=== PATIENT | female | born 1980 | race Caucasian/White ===

== ENCOUNTER → 2019-04-13 | Outpatient (CLI) | payer OTHER ==
--- NOTE | 2019-04-13 10:12 | RAD ---
DATE: 04/13/2019. EXAM: DIGITAL DIAGNOSTIC BILATERAL HISTORY: Bilateral breast pain radiating into both axilla. COMPARISON: None This study was interpreted with the benefit of Computerized Aided Detection (CAD). FINDINGS: Breast Density: HETERO The breast parenchyma Is heterogeneously dense, which could reduce sensitivity of mammography. Breast parenchyma level C. Bilateral scattered focal asymmetries are seen. The skin and nipple are within normal limits. No suspicious calcifications. IMPRESSION: Dense breast tissue. Right breast lesion seen on ultrasound. Please see ultrasound report on the same day. BI-RADS CATEGORY: 4 SUSPICIOUS ABNORMALITY-BIOPSY SHOULD BE CONSIDERED RECOMMENDED FOLLOW-UP: BIO BIOPSY RECOMMENDED PQRS compliance statement: Patient information was entered into a reminder system with a target due date for the next mammogram. Mammography is a sensitive method for finding small breast cancers, but it does not detect them all and is not a substitute for careful clinical examination. A negative mammogram does not negate a clinically suspicious finding and should not result in delay in biopsying a clinically suspicious abnormality. "Our facility is accredited by the [employer] Mammography Program."
--- NOTE | 2019-04-13 10:16 | RAD ---
Indication: Bilateral breast pain. TECHNIQUE: Bilateral whole breast ultrasound COMPARISON: Same day diagnostic mammogram. FINDINGS: Right breast: Oval-shaped hypoechoic mass is seen at 1:00 position approximately 4 cm from the nipple which is wider than taller without vascularity measuring 0.8 x 0.9 x 0.2 cm. No posterior acoustic enhancement or shadowing. Most likely minimally complicated cyst. At 5:30 position approximately 4 cm from the nipple just below the skin there is an oval-shaped hypoechoic isoechoic soft tissue mass measuring 0.8 x 0.8 x 0.6 cm with trace internal vascularity. Right axillary lymph node is seen with normal morphology. Left breast: Oval-shaped hypoechoic mass measuring 0.5 x 0.5 x 0.2 cm without vascularity which is wider than taller likely cluster of cysts. Small morphologically normal-appearing left axillary lymph node IMPRESSION: 1. Bilateral breast indeterminate lesions likely minimally complicated cysts. However there is a solid lesion in the right breast at 5:30 position as described above. BI-RADS 4: Suspicious finding. Biopsy recommended. For other 2 lesions follow-up ultrasound in 6 months recommended. Findings discussed with patient in person. Attempts were made to reach referring physician without success. Electronically signed by: Reggie Bennett DO (04/13/2019 10:13 AM) [facility]
== END | disposition home or self-care (01) ==
LOC: MAMMO 08:20
PROVIDERS: ATTEND Physician Assistant
DX: N63.12 Unspecified lump in the right breast, upper inner quadrant (principal); N63.14 Unspecified lump in the right breast, lower inner quadrant; N63.20 Unspecified lump in the left breast, unspecified quadrant; N64.89 Other specified disorders of breast; E55.9 Vitamin D deficiency, unspecified; Z79.2 Long term (current) use of antibiotics; Z79.899 Other long term (current) drug therapy
CPT/HCPCS: 76641; 77066

== ENCOUNTER → 2019-04-27 | Outpatient (CLI) | payer OTHER ==
--- NOTE | 2019-04-27 09:11 | RAD ---
DATE: April 27, 2019 EXAM: DIGITAL DIAGNOSTIC RT HISTORY: Postbiopsy clip placement. FINDINGS: 2-D digital MLO and CC mammographic views of the right breast were performed. Biopsy clip is seen at the 5:30 position of the right breast approximately 4 cm from the nipple. There is a small nodule adjacent to the clip. IMPRESSION: Postbiopsy clip placement of the right breast.
--- NOTE | 2019-04-27 10:43 | RAD ---
ULTRASOUND-GUIDED CORE BIOPSY OF THE RIGHT BREAST History: 8 mm subcutaneous isoechoic to slightly hypoechoic nodule of the 5:30 position of the right breast 4 cm from the nipple. Procedure: The patient provided both verbal and written consent after the procedure and possible complications including bleeding and infection were explained. A timeout was performed which confirmed the name of the patient and date of and type of procedure and side of the procedure. The patient was placed in the supine position on the ultrasound table and an appropriate skin ann was placed on the right breast over the lesion. The right breast was prepped and draped in the usual sterile fashion with ChloraPrep. Total of 6 cc of 1% lidocaine was utilized for local anesthesia. Using sterile technique and ultrasound guidance, a small skin jazzy was made and 5 separate 14-gauge core biopsies were obtained with a [employer] needle biopsy system. These were placed into formalin and sent to pathology for further evaluation. Following this, a biopsy marker was placed adjacent to the nodule. Hemostasis was adequate after 5 minutes of manual compression. Postbiopsy sonography demonstrated no significant hematoma. The patient tolerated the procedure well without complication. Impression: Ultrasound-guided core biopsy of the right breast was performed without complication. Biopsy results are pending. Follow-up will be with the patient's physician. Electronically signed by: Brad San MD (04/27/2019 10:39 AM) [facility]
--- NOTE | 2019-04-28 17:06 | PATHOLOGY ---
[facility] Accession Number: [id number] . 01 Material submitted: . breast - RIGHT BREAST MASS 5:30 4CMFN 8MM. Modifiers: right, 5:30 . 01 Clinical history: . Right breast mass 5:30, 4 cm from nipple, 8 mm . 02 Diagnosis: Breast tissue, right breast mass 5:30 needle biopsies: - Fibroadenomatous change. (JPM:wendy; 04/28/2019) MBR/04/28/2019 . 02 Comment: There is no evidence of malignancy. (JPM:wendy; 04/28/2019) . 02 Electronically signed: . Jose Eduardo Shipman MD, Pathologist NPI- [id number] . 01 Gross description: . The specimen is received in formalin, labeled "Armando Rosario, right breast" and consists of a few needle cores of yellow-pink tissue measuring 1.5 x 0.5 x 0.2 cm in aggregate which are entirely submitted in A1. The specimen was obtained at 8:20 AM on 04/27/2019 and placed in formalin at 8:20 AM. The cold ischemic time is less than 1 minute and the total formalin fixation time is greater than 6 hours but less than 72 hours. (SDY; 04/27/2019) SYU/SYU . 02 Pathologist provided ICD-10: N60.11 . 02 CPT . 595825 Specimen Comment: A courtesy copy of this report has been sent to Specimen Comment: [phone], . Specimen Comment: Report sent to / DR CRESPO Performed at: 01 [facility] [address] [place] [address] [address], [place] [id number] MD Ben Thompson MD Phone: [phone] Performed at: [address] [id number] MD Jose Eduardo Shipman MD Phone: [phone]
== END | disposition home or self-care (01) ==
LOC: US 07:23
PROVIDERS: ATTEND Physician Assistant
DX: D24.1 Benign neoplasm of right breast (principal)
CPT/HCPCS: 19083; 76942; 77065; 88305